=== PATIENT | male | born 1970 | race Caucasian/White ===

== ENCOUNTER 2018-03-26 19:32 | Observation (INO) ==
--- NOTE | 2018-03-26 19:39 | Emergency Department Note ---
Disposition Clinical Impression: Chest pain Qualifiers: Chest pain type: unspecified Qualified Code(s): R07.9 - Chest pain, unspecified Disposition: Admitted As Inpatient Condition: Good Chest Pain HPI - General Chief Complaint: ED Chest Pain Stated Complaint: Chest Pain Time Seen by Provider: 03/26/18 19:38 Vital Signs Reviewed: Yes Nursing Notes Reviewed: Yes - History of Present Illness HPI Narrative: 47-year-old male presents emergency department with concern for chest pain. Patient states he has had this for the last 3 days. He says started after taking lisinopril. Patient also reports that he has been having cough. He is also having some sputum production but he denies any fever. - Related Data Home Medications Medication Instructions Recorded Confirmed Alprazolam [Xanax] 2 mg PO TID 03/26/18 03/26/18 Allergies Allergy/AdvReac Type Severity Reaction Status Date / Time No Known Allergies Allergy Verified 03/26/18 20:14 All systems ED: reviewed and negative except as stated. Review of Systems: As Per HPI Constitutional: Denies: fever Cardiovascular: Reports: chest pain. Denies: edema Respiratory: Reports: cough, dyspnea, wheezes, sputum production Gastrointestinal: Denies: abdominal pain, nausea, vomiting Musculoskeletal: Denies: back pain, neck pain Hematological/Lymphatic: Denies: easy bleeding Physical Exam - Head Head exam: normocephalic - Eye Eye exam: Present: EOMI - ENT ENT exam: normal oropharynx - Neck Neck exam: Present: trachea midline - Chest Chest inspection: Present: symmetric chest wall rise, tenderness (upon palpation ) - Respiratory Respiratory exam: Present: wheezes. Absent: respiratory distress - Cardiovascular Cardiovascular exam: Present: regular rate, normal rhythm, normal heart sounds - Abdominal Exam Abdominal exam: Present: soft, Non-Tender. Absent: distention, guarding, rebound, rigidity Course Vital Signs Temperature 97.9 F 03/26/18 19:37 Pulse Rate 69 03/26/18 19:37 Respiratory Rate 14 03/26/18 19:37 Blood Pressure 132/84 03/26/18 19:37 O2 Sat by Pulse Oximetry 98 03/26/18 19:37 Temperature 97.9 F 03/26/18 19:37 Pulse Rate 54 03/26/18 22:27 Respiratory Rate 18 03/26/18 22:27 Blood Pressure 112/81 03/26/18 22:27 O2 Sat by Pulse Oximetry 95 03/26/18 22:27 Oxygen Delivery Oxygen Delivery Room Air Chest Pain - MDM Narrative Medical decision making narrative: 47-year-old male presents emergency department with concern for chest pain. At this time, initial EKG reveals new changes from previous EKG that are concerning for possible ischemia. No evidence of STEMI at this time. Patient given aspirin here in the emergency department. He will also be given a trial of nitroglycerin. Patient currently hemodynamic was stable. He does not appear to be in any significant distress at this time. He does have a heart score 5. Patient had resolution of chest pain after menstruation of nitroglycerin trial. Discussed admission with patient. He agreed to stay. Chest x-ray did not reveal any acute cart a pulmonary abnormality. Troponin was negative. Patient hemodynamically stable not in acute distress at time of admission. Chest X-Ray 03/26/18 19:55 IMPRESSION: No acute process. D/ / Kevin Jeter MD / Kevin Jeter MD Interpreting Provider: Kevin Jeter MD Vital Signs Temperature 97.9 F 03/26/18 19:37 Pulse Rate 69 03/26/18 19:37 Respiratory Rate 14 03/26/18 19:37 Blood Pressure 132/84 03/26/18 19:37 O2 Sat by Pulse Oximetry 98 03/26/18 19:37 Temperature 97.9 F 03/26/18 19:37 Pulse Rate 54 03/26/18 22:27 Respiratory Rate 18 03/26/18 22:27 Blood Pressure 112/81 03/26/18 22:27 O2 Sat by Pulse Oximetry 95 03/26/18 22:27 Oxygen Delivery Oxygen Delivery Room Air - Lab Data Result diagrams: 03/26/18 20:14 03/26/18 20:14 Lab Results 03/26/18 03/26/18 03/26/18 Range/Units 20:14 20:14 20:14 WBC 10.4 (4.3-11.1) K/mcL RBC 5.34 (4.19-5.50) M/mcL Hgb 15.7 (12.9-16.9) g/dL Hct 47.0 (37.5-50.1) % MCV 88.0 (83.0-100.0) fL MCH 29.4 (28.0-33.3) pg MCHC 33.4 (31.6-35.5) g/dL RDW 14.7 H (11.5-14.5) % Plt Count 240 (140-400) K/mcL MPV 10.7 (9.4-12.4) fL Immature Gran % 0.5 (0-4) % Seg Neutrophils % 67.6 % Lymphocytes % 23.1 % Monocytes % 7.5 % Eosinophils % 0.7 % Basophils % 0.6 % Neutrophils # 7.0 (1.6-8.9) K/mcL Lymphocytes # 2.4 (0.6-4.6) K/mcL Monocytes # 0.8 (0.0-1.3) K/mcL Eosinophils # 0.1 (0.0-0.6) K/mcL Basophils # 0.1 (0.0-0.2) K/mcL PT 11.7 (9.4-12.1) Seconds INR 1.0 APTT 29.1 (26.0-36.0) Seconds Sodium 139 (136-145) mEq/L Potassium 3.9 (3.5-5.1) mEq/L Chloride 105 (98-107) mEq/L Carbon Dioxide 29 (23-29) mEq/L BUN 18 (6-20) mg/dL Creatinine 0.80 (0.70-1.30) mg/dL Est GFR ( Amer) > 60 (> 60) Est GFR (Non-Af Amer) > 60 (> 60) BUN/Creatinine Ratio 23 (6-26) Glucose 96 (70-105) mg/dL Calculated Osmolality 290 (280-300) Calcium 9.5 (8.6-10.3) mg/dL Troponin I < 0.03 (< 0.04) ng/mL - EKG Data EKG attestation: Yes I reviewed and interpreted this EKG. EKG results narrative: 19:39 Heart rate 63, IN interval 141 ms, QRS duration 102 6, QT 383 ms, QTC 390 ms, right axis deviation. Q waves in lead 1 and aVL. There are also T-wave inversions in 1 and aVL as well. New from previous EKG obtained on February 22, 2015. EKG #2 No additional changes. EKG #3 No new ischemic changes. Heart Score - Score History: Moderately Suspicious EKG: Non Specific repolarisation Disturbance Age: 45-65 Risk Factors: Equal/Greater than 3 risk factor or history of atherosclerotic disease Troponin: Less than normal limit HEART Score Total: 5
[2018-03-26] MEDS ORDERED: Ipratropium/Albuterol Neb 3 ML IH ONE (19:56)
[2018-03-26] MEDS ORDERED: predniSONE 20 MG TABLET PO ONE (19:57)
[2018-03-26] MEDS ORDERED: Aspirin 325 MG TABLET PO ONE (20:09)
[2018-03-26] MEDS ORDERED: 0.9 % Sodium Chloride 1,000 ML IVC ONE (20:17)
[2018-03-26] MEDS: Nitroglycerin 0.4 MG TAB.SUBL SL PRN ×3 (20:28→20:40)
[2018-03-26 20:36] LABS: Basophils # 0.1 K/mcL (0.0-0.2); Basophils % 0.6 %; Eosinophils # 0.1 K/mcL (0.0-0.6); Eosinophils % 0.7 %; Hemoglobin 15.7 g/dL (12.9-16.9); Immature Granulocytes % 0.5 % (0-4); Lymphocytes # 2.4 K/mcL (0.6-4.6); Lymphocytes % 23.1 %; Mean Corpuscular HGB Conc 33.4 g/dL (31.6-35.5); Mean Corpuscular Hemoglobin 29.4 pg (28.0-33.3); Mean Platelet Volume 10.7 fL (9.4-12.4); Monocytes # 0.8 K/mcL (0.0-1.3); Monocytes % 7.5 %; Platelet Count 240 K/mcL (140-400); Red Blood Count 5.34 M/mcL (4.19-5.50); Red Cell Distribution Width 14.7 % (11.5-14.5); Segmented Neutrophils % 67.6 %
[2018-03-26 20:48] LABS: BUN/Creatinine Ratio 23 (6-26); Blood Urea Nitrogen 18 mg/dL (6-20); Calcium 9.5 mg/dL (8.6-10.3); Carbon Dioxide 29 mEq/L (23-29); Chloride 105 mEq/L (98-107); Glucose 96 mg/dL (70-105); Osmolality,Calculated 290 (280-300); Potassium 3.9 mEq/L (3.5-5.1); Sodium 139 mEq/L (136-145); eGFR For Non-African Americans > 60 (> 60)
[2018-03-26 20:49] LABS: Troponin I < 0.03 ng/mL (< 0.04)
--- NOTE | 2018-03-26 21:04 | Emergency Department Note ---
Disposition Clinical Impression: Chest pain Qualifiers: Chest pain type: unspecified Qualified Code(s): R07.9 - Chest pain, unspecified Disposition: Admitted As Inpatient Condition: Good General Adult HPI - General Chief complaint: ED Chest Pain Stated complaint: Chest Pain Time Seen by Provider: 03/26/18 19:38 Source: patient, family Limitations: no limitations - History of Present Illness Pain Scale: 6 - Related Data Home Medications Medication Instructions Recorded Confirmed Alprazolam [Xanax] 2 mg PO TID 03/26/18 03/26/18 Allergies Allergy/AdvReac Type Severity Reaction Status Date / Time No Known Allergies Allergy Verified 03/26/18 20:14 Constitutional: Denies: fever Cardiovascular: Reports: chest pain. Denies: edema Respiratory: Reports: cough, dyspnea, wheezes, sputum production Gastrointestinal: Denies: abdominal pain, nausea, vomiting Musculoskeletal: Denies: back pain, neck pain Hematological/Lymphatic: Denies: easy bleeding Past Medical History - Past Medical History Medical history: Reports: hyperlipidemia, hypertension Psychiatric history: Reports: anxiety - Social History Smoking Status: Current every day smoker Smokeless Tobacco Status: No Alcohol use: Reports: none Drug use: Reports: none Physical Exam - General Limitations: no limitations General appearance: alert, in no apparent distress Course Vital Signs Temperature 97.9 F 03/26/18 19:37 Pulse Rate 69 03/26/18 19:37 Respiratory Rate 14 03/26/18 19:37 Blood Pressure 132/84 03/26/18 19:37 O2 Sat by Pulse Oximetry 98 03/26/18 19:37 Temperature 97.7 F 03/27/18 08:10 Pulse Rate 55 03/27/18 08:10 Respiratory Rate 16 03/27/18 08:10 Blood Pressure 102/65 03/27/18 08:10 O2 Sat by Pulse Oximetry 97 03/27/18 08:10 Oxygen Delivery Oxygen Delivery Room Air Medical Decision Making - Lab Data Result diagrams: 03/27/18 03:25 03/27/18 03:25 Lab Results 03/26/18 03/26/18 03/26/18 Range/Units 20:14 20:14 20:14 WBC 10.4 (4.3-11.1) K/mcL RBC 5.34 (4.19-5.50) M/mcL Hgb 15.7 (12.9-16.9) g/dL Hct 47.0 (37.5-50.1) % MCV 88.0 (83.0-100.0) fL MCH 29.4 (28.0-33.3) pg MCHC 33.4 (31.6-35.5) g/dL RDW 14.7 H (11.5-14.5) % Plt Count 240 (140-400) K/mcL MPV 10.7 (9.4-12.4) fL Immature Gran % 0.5 (0-4) % Seg Neutrophils % 67.6 % Lymphocytes % 23.1 % Monocytes % 7.5 % Eosinophils % 0.7 % Basophils % 0.6 % Neutrophils # 7.0 (1.6-8.9) K/mcL Lymphocytes # 2.4 (0.6-4.6) K/mcL Monocytes # 0.8 (0.0-1.3) K/mcL Eosinophils # 0.1 (0.0-0.6) K/mcL Basophils # 0.1 (0.0-0.2) K/mcL PT 11.7 (9.4-12.1) Seconds INR 1.0 APTT 29.1 (26.0-36.0) Seconds Sodium 139 (136-145) mEq/L Potassium 3.9 (3.5-5.1) mEq/L Chloride 105 (98-107) mEq/L Carbon Dioxide 29 (23-29) mEq/L BUN 18 (6-20) mg/dL Creatinine 0.80 (0.70-1.30) mg/dL Est GFR ( Amer) > 60 (> 60) Est GFR (Non-Af Amer) > 60 (> 60) BUN/Creatinine Ratio 23 (6-26) Glucose 96 (70-105) mg/dL Calculated Osmolality 290 (280-300) Calcium 9.5 (8.6-10.3) mg/dL Troponin I < 0.03 (< 0.04) ng/mL Attestation Statement - Attestation Attestation: I examined this patient and my medical decision-making was reviewed with the Resident Physician. I agree with the documented findings, disposition and treatment plan as described except to the extent set forth below. Moderately suspicious story with lower sternal chest heaviness, no radiation, no nausea or diaphoresis. Has had some shortness of breath but also has a cough , no fever. He has COPD, is coughing more than usual. Pain was intermittent for a day, mostly constant for the last 2 days. Cannot identify any alleviating or exacerbating factors. Has 3 risk factors. EKG shows Q waves and T-wave inversions in leads 1 and aVL that are new compared to thousand 15. There are also peaked T waves in the precordium that looked exactly the same as it did in 2015. Heart score is 5 with troponin pending. Repeat EKG is unchanged, repeating again at the time of dictation. Patient will require admission for further evaluation and management.
[2018-03-26] MEDS ORDERED: Nicotine 7 MG PATCH.TD24 TD STA (22:00)
[2018-03-26 22:22] LABS: Prothrombin Time 11.7 Seconds (9.4-12.1)
[2018-03-26 22:25] LABS: Activated Partial Thrombo Time 29.1 Seconds (26.0-36.0)
[2018-03-26] MEDS ORDERED: Naloxone 0.4 MG/ML INJ IVP PRN (22:56)
[2018-03-26] MEDS ORDERED: Nitroglycerin 0.4 MG TAB.SUBL SL PRN (23:39)
[2018-03-26] MEDS ORDERED: *HR* Heparin 5,000 UNIT/ML VIAL IVP PRN ×2 (23:42)
[2018-03-26] MEDS ORDERED: *HR* Heparin 5,000 UNIT/ML VIAL IVP ONE (23:42)
[2018-03-26] MEDS ORDERED: Heparin 25,000 UNIT/500 ML D5W 25,000 UNIT/500 ML BAG IVC SCH (23:45)
[2018-03-26] MEDS: 0.9 % Sodium Chloride 1,000 ML IVC SCH (23:46)
--- NOTE | 2018-03-26 23:48 | Internal Med History&Physical ---
Date of Encounter: 03/27/18 Time of Encounter: 23:46 Internal Medicine - H&P: HPI Chief complaint: CHest pain/Duspnea History of present illness: Mr. Tabares is a 47 year old male with past medical history of hypertension, anxiety, and unconfirmed COPD in the setting of a significant smoking history who presented to the ED at the request of his father for ongoing chest pain and difficulty breathing. Patient states that last Sunday night while helping his father work on his car he developed substernal nonradiating chest pain which she described as a squeezing sensation, 6 out of 10 in intensity associated with difficulty breathing. He states that he felt like he was gasping for air. Patient has a history of panic attacks but states that this was not similar to his panic attacks. Patient stated that he sat down to take a break which did alleviate his symptoms somewhat. Denies any nausea but does endorse some diaphoresis and palpitations. He does seem to endorse that his symptoms were aggravated with exertion and partially relieved with rest. Since then symptoms have not completely resolved however the patient brushed it off until his father pushed him to come into the ED today to have it checked. Patient also states that he was started on lisinopril by his doctor approximately 4 days ago and ever since then has been linking his current symptoms to the medication. Patient smokes about a pack a day and has been doing so for the past 30 years. Denies any alcohol or drug use. Reports a history of heart disease on his father's side. His father had stents placed in his heart and he believes at the age of 65. Past Med Surg Social Fam HX - Past Medical History Medical history: hyperlipidemia, hypertension Psychiatric history: anxiety - Social History Smoking Status: Current every day smoker Smokeless Tobacco Status: No Alcohol use: none Drug use: none Internal Medicine - H&P: Meds Alprazolam [Xanax] 2 mg PO TID 03/26/18 [History] 3 Allergy/AdvReac Type Severity Reaction Status Date / Time No Known Allergies Allergy Verified 03/26/18 20:14 All Systems PM: A 10-system review of systems was performed and is negative for pertinent findings except as documented above in the HPI. - Constitutional Constitutional: no chills, no fever(s), no night sweats - EENT Eyes: no change in vision, no discharge, no pain, no photophobia Ears: no ear discharge, no ear pain, no tinnitus Nose, mouth and throat: no dysphagia, no nasal discharge, no neck pain, no sore throat - Cardiovascular Cardiovascular ROS IM: no chest pain, no diaphoresis, no dyspnea, no lightheadedness, no palpitations, no syncope - Respiratory Respiratory: no cough, no dyspnea, no wheezing, no excessive phlegm production - Gastrointestinal Gastrointestinal: no abdominal pain, no diarrhea, no hematemesis, no hematochezia, no melena, no nausea, no vomiting - Musculoskeletal Musculoskeletal ROS IM: no numbness, no tingling - Integumentary Integumentary IM: no rash, no unusual bruising - Neurological Neurological ROS: no confusion, no convulsions, no focal weakness, no numbness, no tingling, no tremor(s) - Hematologic/Lymphatic Hematologic/Lymphatic: no easy bruising - Constitutional Vitals: Temp Pulse Resp BP Pulse Ox 98.1 F 56 16 113/75 98 03/26/18 23:35 03/26/18 23:35 03/26/18 23:35 03/26/18 23:35 03/26/18 23:35 Exam: General: Alert and oriented 3 lying in bed not in acute distress Skin:Normal color, no rash, no lesions. HEENT:EOM, pupils equal, round and reactive. Cardiovascular:Normal S1 & S2, no rubs, murmurs or gallops. No JVD. Pulse regular. Lungs:Normal breath sounds, no wheezes or crackles. Abdomen:Soft, non-tender, no rigidity. Extremities:No deformity, no edema or tenderness, no joint swelling or clubbing. Neurological:Normal cognition and motor skills. Pulses:Carotid and radial pulses normal +2. Rest of the physical exam is non contributory Internal Med - H&P Results - Labs CBC & Chem 7: 03/27/18 03:25 03/27/18 03:25 - Assessment and plan (1) Chest pain Current Visit: Yes Status: Acute Assessment and plan: 47-year-old male with chest pain with some typical features and shortness of breath. Patient has multiple risk factors including hypertension, significant smoking history and family history. Troponins initial initially negative however EKG changes were noted, specifically with inverted T waves in lead 1 and aVF when compared to EKG in 2015. Rule out acute coronary syndrome. We will start patient on aspirin, statin, beta hipolito. Sublingual nitroglycerin as needed. Start patient on heparin drip. Cardiology consultation the morning. (Order in but Call has not been placed). Patient may need stress test evaluate for ischemic heart disease. (2) Hypertension Current Visit: Yes Status: Acute Assessment and plan: Blood pressure stable. Will start patient on 25 mg of metoprolol every 6 hours. Qualifiers: Hypertension type: essential hypertension Qualified Code(s): I10 - Essential (primary) hypertension (3) Anxiety Current Visit: Yes Status: Acute Assessment and plan: Continue patient's home dose of Xanax. - Time Spent With Patient Total time spent is greater than 50% in coordination of care (as documented) at patient's floor/unit and/or counseling patient:
[2018-03-27] MEDS: ALPRAZolam 1 MG TABLET PO SCH ×3 (01:01→14:25)
[2018-03-27 03:42] LABS: Basophils # 0.1 K/mcL (0.0-0.2); Basophils % 0.6 %; Eosinophils # 0.2 K/mcL (0.0-0.6); Eosinophils % 1.5 %; Hematocrit 44.7 % (37.5-50.1); Hemoglobin 14.5 g/dL (12.9-16.9); Immature Granulocytes % 0.6 % (0-4); Lymphocytes # 3.9 K/mcL (0.6-4.6); Lymphocytes % 37.5 %; Mean Corpuscular HGB Conc 32.4 g/dL (31.6-35.5); Mean Corpuscular Hemoglobin 29.1 pg (28.0-33.3); Mean Corpuscular Volume 89.6 fL (83.0-100.0); Mean Platelet Volume 10.6 fL (9.4-12.4); Monocytes # 0.8 K/mcL (0.0-1.3); Monocytes % 7.3 %; Neutrophils # 5.5 K/mcL (1.6-8.9); Platelet Count 229 K/mcL (140-400); Red Blood Count 4.99 M/mcL (4.19-5.50); Red Cell Distribution Width 14.7 % (11.5-14.5); Segmented Neutrophils % 52.5 %
[2018-03-27 04:04] LABS: Alanine Aminotransferase 11 Units/L (7-52); Albumin 3.3 g/dL (3.5-5.7); Albumin/Globulin Ratio 1.9 (1.1-2.2); Alkaline Phosphatase 40 Units/L (34-104); Aspartate Amino Transferase 12 Units/L (13-39); BUN/Creatinine Ratio 24 (6-26); Bilirubin,Total 0.3 mg/dL (0.3-1.0); Blood Urea Nitrogen 15 mg/dL (6-20); Calcium 8.6 mg/dL (8.6-10.3); Carbon Dioxide 28 mEq/L (23-29); Chloride 107 mEq/L (98-107); Chol/HDL Ratio 3.6 (0-4.9); Cholesterol 153 mg/dL (< 200); Globulin 1.7 g/dL (2.4-3.5); Glucose 97 mg/dL (70-105); HDL Cholesterol 43 mg/dL (40-59); LDL Cholesterol,Calculated 96 mg/dL (0-99); Osmolality,Calculated 291 (280-300); Potassium 3.6 mEq/L (3.5-5.1); Sodium 140 mEq/L (136-145); Triglycerides 69 mg/dL (< 150); eGFR For Non-African Americans > 60 (> 60)
--- NOTE | 2018-03-27 08:59 | Cardiology Consult Note ---
Date of Encounter: 03/27/18 Time of Encounter: 08:54 Assessment and Plan (1) Chest pain Current Visit: Yes Status: Acute Presented with chest pain that started Saturday, midsternal without radiation, no alleviating or exacerbating factors. Currently CP free. Troponin negative x 3. EKG is abnormal, but similar to EKG in 2015--early repolarization. Current EKG limb leads are reversed. Will repeat EKG. Risk factors for CAD include HTN, tobacco abuse and family hx--father with PCI at 65. Recommend TTE to evaluate structure and function. Recommend nuclear stress test to further evaluate for ischemic cause. Will follow-up later today after stress test has resulted. Qualifiers: Chest pain type: unspecified Qualified Code(s): R07.9 - Chest pain, unspecified Discussion w patient/family: The assessment and plan as outlined above was discussed with the patient and/or family members who expressed understanding and agreement. All questions were answered. Thank you for involving us in the care of your patient. Please call with any questions. I will discuss all the above with Dr. Ordonez and make changes as necessary. History of Present Illness Consult date: 03/27/18 Consult reason: abnormal EKG, CP Chief complaint: chest pain History of present illness: Mr. Tabares is a 47 year old male with PMH of hypertension, anxiety, tobacco abuse who presented to the ED for chest pain and difficulty breathing. Patient states that Sunday night while helping his father work on his car he developed substernal nonradiating chest pain which she described as pressure associated with dyspnea. Hx of anxiety. Endorses diaphoresis and palpitations. He was started on lisinopril by his PCP 5 days ago and attributed symptoms to Lisinopril. He smokes 1PPD x 30 years. Denies any alcohol or drug use. Reports a history of heart disease in his father with PCI at age 65. Pt currently chest pain free. He denies exacerbating or alleviating factors. Troponins negative x 3. EKG abnormalities noted. Cardiology consulted for further recs. Past Med Surg Social Fam HX - Past Medical History Medical history: hyperlipidemia, hypertension Psychiatric history: anxiety - Social History Smoking Status: Current every day smoker Smokeless Tobacco Status: No Alcohol use: none Drug use: none - Family History Mother Living Status: Still Living Father Living Status: Still Living Hx Family Cardiac Disorders: Yes (Stents) Medications and Allergies Alprazolam [Xanax] 2 mg PO TID 03/26/18 [History] 3 Allergy/AdvReac Type Severity Reaction Status Date / Time No Known Allergies Allergy Verified 03/26/18 20:14 All Systems Review: The remainder of the systems were reviewed and are negative - Constitutional Constitutional: fatigue - Cardiovascular Cardiovascular: as per HPI, chest pain at rest, chest pain with exertion, diaphoresis, dyspnea at rest, dyspnea on exertion, palpitations - Respiratory Respiratory: dyspnea Physical Examination Vital Signs, Last 4 Hours Temp Pulse Resp BP Pulse Ox 03/27/18 08:10 97.7 F 55 16 102/65 97 Vital Signs Temp Pulse Resp BP Pulse Ox 03/27/18 08:10 97.7 F 55 16 102/65 97 03/27/18 03:57 98.2 F 63 16 111/73 98 03/26/18 23:35 98.1 F 56 16 113/75 98 03/26/18 22:27 54 18 112/81 95 03/26/18 20:42 139/74 03/26/18 20:38 57 18 111/71 99 03/26/18 20:35 62 18 107/72 99 03/26/18 20:33 61 18 111/81 98 03/26/18 20:31 56 18 112/80 97 03/26/18 19:37 97.9 F 69 14 132/84 98 Intake and Output 03/26/18 03/27/18 03/27/18 23:59 07:59 15:59 Intake Total 220 / 220 Output Total 0 / 0 Balance 0 / 0 220 / 220 Intake: IV Fluids 220 / 220 Heparin 25,000 UNIT/500 ML D5W 220 / 220 25,000 unit In 500 ml @ 14 UNIT /KG/HR 22.876 mls/hr IVC . [id number] [facility] Rx#:[id number] Output: Urine 0 / 0 Other: Weight 81.7 kg General: Conversant, No Apparent Distress HEENT: Atraumatic, Normocephaly, Mucus Membranes Moist Neck: No JVD, Normal carotid pulses Cardiac: Reg Rate and Rhythm, Normal S1 and S2, No Murmur Lungs: Normal Breath Sounds, No Wheeze, Rales, Rhonchi Neuro: Alert and responsive, No focal deficits noted Abdomen: Soft, Non-Tender Skin: No rashes noted on visualized skin Musculoskeletal: No Chest Wall Tenderness Extremities: No Clubbing, No Cyanosis, No Edema, Normal Pulses Results 03/27/18 03:25 03/27/18 03:25 Lab Results 03/27/18 03/27/18 03/27/18 03:25 03:25 03:25 WBC 10.4 Hgb 14.5 Hct 44.7 Plt Count 229 Sodium 140 Potassium 3.6 Chloride 107 Carbon Dioxide 28 BUN 15 Creatinine 0.62 L Glucose 97 Calcium 8.6 Total Bilirubin 0.3 AST 12 L ALT 11 Alkaline Phosphatase 40 Troponin I < 0.03 03/27/18 06:52 WBC Hgb Hct Plt Count Sodium Potassium Chloride Carbon Dioxide BUN Creatinine Glucose Calcium Total Bilirubin AST ALT Alkaline Phosphatase Troponin I < 0.03 Short CBC 03/27/18 03/26/18 Range/Units 03:25 20:14 WBC 10.4 10.4 (4.3-11.1) K/mcL Hgb 14.5 15.7 (12.9-16.9) g/dL Hct 44.7 47.0 (37.5-50.1) % Plt Count 229 240 (140-400) K/mcL Neutrophils # 5.5 7.0 (1.6-8.9) K/mcL BMP 03/27/18 03/26/18 Range/Units 03:25 20:14 Sodium 140 139 (136-145) mEq/L Potassium 3.6 3.9 (3.5-5.1) mEq/L Chloride 107 105 (98-107) mEq/L Carbon Dioxide 28 29 (23-29) mEq/L BUN 15 18 (6-20) mg/dL Creatinine 0.62 L 0.80 (0.70-1.30) mg/dL Glucose 97 96 (70-105) mg/dL Calcium 8.6 9.5 (8.6-10.3) mg/dL Cardiac Enzymes 03/27/18 03/27/18 03/26/18 Range/Units 06:52 03:25 20:14 Troponin I < 0.03 < 0.03 < 0.03 (< 0.04) ng/mL Liver Function 03/27/18 Range/Units 03:25 Total Bilirubin 0.3 (0.3-1.0) mg/dL AST 12 L (13-39) Units/L ALT 11 (7-52) Units/L Alkaline Phosphatase 40 (34-104) Units/L Albumin 3.3 L (3.5-5.7) g/dL Impressions Chest X-Ray 03/26/18 19:55 IMPRESSION: No acute process. D/ / Kevin Jeter MD / Kevin Jeter MD Interpreting Provider: Kevin Jeter MD Active Medications Alprazolam (Xanax) 2 mg PO TID YI Stop: 09/25/18 23:46 Last Admin: 03/27/18 08:46 Dose: 2 mg Aspirin (Aspirin) 81 mg PO DAILY YI Stop: 09/26/18 09:01 Last Admin: 03/27/18 08:46 Dose: 81 mg Atorvastatin Calcium (Lipitor) 40 mg PO HS YI Stop: 09/25/18 23:46 Last Admin: 03/27/18 00:58 Dose: 40 mg Heparin Sodium (Porcine) (Heparin) 5,700 unit 70 unit/kg (5700 unit) IVP Q6HR PRN PRN Reason: SEE COMMENTS Stop: 09/25/18 23:43 Heparin Sodium (Porcine) (Heparin) 2,900 unit 35 unit/kg (2900 unit) IVP Q6H PRN PRN Reason: SEE COMMENTS Stop: 09/25/18 23:43 Sodium Chloride (0.9 % Sodium Chloride) 1,000 mls @ 100 mls/hr IVC .Q10H YI Stop: 03/27/18 18:59 Last Admin: 03/26/18 23:46 Dose: 100 mls/hr Heparin Sodium/Dextrose (Heparin 25,000 Unit/500 Ml D5w) 25,000 unit in 500 mls @ 22.876 mls/hr IVC .[id number] YI; 14 UNIT/KG/HR PRN Reason: Protocol Stop: 09/25/18 23:46 Last Titration: 03/27/18 08:29 Dose: 0 unit/kg/hr, 0 mls/hr Metoprolol Tartrate (Lopressor) 25 mg PO Q6HR YI Stop: 09/26/18 00:01 Last Admin: 03/27/18 05:18 Dose: Not Given Naloxone HCl (Narcan) 0.4 mg IVP Q2MIN PRN PRN Reason: SEE COMMENTS Stop: 09/25/18 22:57 Nitroglycerin (Nitroglycerin) 0.4 mg SL Q5MIN PRN PRN Reason: Chest Pain Stop: 09/25/18 20:11 Last Admin: 03/26/18 20:40 Dose: 0.4 mg - EKG Interpretation EKG results cardiology: personally reviewed (early repolarization, limb leads reversed.), other (12 hr tele AVG HR 54, SR, no significant pauses or arrhythmias) Consult Discharge Plan - Plan Referrals: NONE,PCP [Primary Care Provider] -
[2018-03-27] MEDS ORDERED: Aspirin 81 MG TAB.CHEW PO SCH (09:00)
[2018-03-27] MEDS: 0.9 % Sodium Chloride 1,000 ML IVC SCH (09:23)
--- NOTE | 2018-03-27 11:40 | Internal Med Progress Note ---
Hospitalist Progress Note - Encounter Date of Encounter: 03/27/18 Time of Encounter: 11:38 - Subjective Interval History: Pt currently has no chest pain. - Exam Vitals: Temp Pulse Resp BP Pulse Ox 97.7 F 55 16 102/65 97 03/27/18 08:10 03/27/18 08:10 03/27/18 08:10 03/27/18 08:10 03/27/18 08:10 Exam: PHYSICAL EXAMINATION: GENERAL APPEARANCE: The patient is alert, oriented and in no acute distress. HEENT: Head is normocephalic. The sinuses are nontender. Pupils are equal and reactive. The nares are patent. Oropharynx clear without lesions. NECK: Supple without lymphadenopathy. HEART: Regular rate and rhythm. LUNGS: No crackles or wheezes are heard. ABDOMEN: Soft, nontender, nondistended with good bowel sounds heard. Inguinal area is normal. EXTREMITIES: Without cyanosis, clubbing or edema. NEUROLOGICAL: Gross nonfocal. SKIN: Warm and dry without any rash. - Assessment and Plan (1) Chest pain Current Visit: Yes Status: Acute Assessment and Plan: 47-year-old male with chest pain with some typical features and shortness of breath. Patient has multiple risk factors including hypertension, significant smoking history and family history. Troponins initial initially negative however EKG changes were noted, specifically with inverted T waves in lead 1 and aVF when compared to EKG in 2015. cards consulted and stress test and echo ordered. (2) Hypertension Current Visit: Yes Status: Acute Assessment and Plan: Blood pressure stable. Will start patient on 25 mg of metoprolol every 6 hours. (3) Anxiety Current Visit: Yes Status: Acute Assessment and Plan: Continue patient's home dose of Xanax. DVT Prophylaxis: SCDs - Time Spent with Patient Total time spent is greater than 50% in coordination of care (as documented) at patient's floor/unit and/or counseling patient: Greater than 35 minutes Plan of Care Discussed with: patient Internal Medicine: Result - Labs CBC & Chem 7: 03/27/18 03:25 03/27/18 03:25 Labs: Short CBC 03/27/18 Range/Units 03:25 WBC 10.4 (4.3-11.1) K/mcL Hgb 14.5 (12.9-16.9) g/dL Hct 44.7 (37.5-50.1) % Plt Count 229 (140-400) K/mcL Neutrophils # 5.5 (1.6-8.9) K/mcL BMP 03/27/18 03:25 Sodium 140 Potassium 3.6 Chloride 107 Carbon Dioxide 28 BUN 15 Creatinine 0.62 L Glucose 97 Calcium 8.6 Cardiac Enzymes 03/27/18 03/27/18 Range/Units 03:25 06:52 Troponin I < 0.03 < 0.03 (< 0.04) ng/mL Liver Function 03/27/18 Range/Units 03:25 Total Bilirubin 0.3 (0.3-1.0) mg/dL AST 12 L (13-39) Units/L ALT 11 (7-52) Units/L Alkaline Phosphatase 40 (34-104) Units/L Albumin 3.3 L (3.5-5.7) g/dL - ABG Interpretation ABG results: PT/INR, D-dimer PT 11.7 Seconds (9.4-12.1) 03/26/18 20:14 Consult Discharge Plan - Plan Referrals: NONE,PCP [Primary Care Provider] - (2) Hypertension Qualifiers: Hypertension type: essential hypertension Qualified Code(s): I10 - Essential (primary) hypertension
[2018-03-27] MEDS ORDERED: Regadenoson 0.4 MG/5 ML SYRINGE IVP ONE (11:54)
[2018-03-27 13:06] VITALS: BP 102/66
--- NOTE | 2018-03-27 15:07 | Event Note ---
Date of Encounter: 03/27/18 Time of Encounter: 15:06 - Cardiology Event Note Nuclear stress test perfusion imaging negative for ischemia or infarct, gated EF 63%. TTE pending. If no significant findings on echo, cardiology will sign off. Reconsult PRN.
--- NOTE | 2018-03-27 16:42 | Electrocardiograph Report ---
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
--- NOTE | 2018-03-27 16:50 | Electrocardiograph Report ---
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
--- NOTE | 2018-03-27 17:05 | Discharge Summary ---
- NOTES TO OUTPATIENT PROVIDER Notes to Outpatient Provider: f/u with PCP within a week. Orders not resulted at time of discharge: Pending orders 03/27/18 09:09 NM manuel perf SPECT multi [NM] Routine EV echocardiogram Routine Date of Encounter: 03/27/18 Time of Encounter: 17:02 - Discharge Diagnosis (1) Chest pain Priority: Primary Status: Acute Qualifiers: Chest pain type: unspecified Qualified Code(s): R07.9 - Chest pain, unspecified (2) Hypertension Priority: Secondary Status: Chronic Qualifiers: Hypertension type: essential hypertension Qualified Code(s): I10 - Essential (primary) hypertension (3) Anxiety Priority: Secondary Status: Chronic Hospital course: Mr. Tabares is a 47 year old male with past medical history of hypertension, anxiety, and unconfirmed COPD in the setting of a significant smoking history who presented to the ED at the request of his father for ongoing chest pain and difficulty breathing. Patient states that last Sunday night while helping his father work on his car he developed substernal nonradiating chest pain which she described as a squeezing sensation, 6 out of 10 in intensity associated with difficulty breathing. He states that he felt like he was gasping for air. Patient has a history of panic attacks but states that this was not similar to his panic attacks. Patient stated that he sat down to take a break which did alleviate his symptoms somewhat. Denies any nausea but does endorse some diaphoresis and palpitations. He does seem to endorse that his symptoms were aggravated with exertion and partially relieved with rest. Since then symptoms have not completely resolved however the patient brushed it off until his father pushed him to come into the ED today to have it checked. Patient also states that he was started on lisinopril by his doctor approximately 4 days ago and ever since then has been linking his current symptoms to the medication. Patient smokes about a pack a day and has been doing so for the past 30 years. Denies any alcohol or drug use. Reports a history of heart disease on his father's side. His father had stents placed in his heart and he believes at the age of 65. Cardiac workup including stress test and echocardiogram both are reassuring. Patient will be discharged home today, he was instructed to follow-up with PCP within a week. Discharge discussed with: patient Time spent discussing smoking cessation with patient: more than 10 minutes - Time Spent with Patient Total time spent providing and/or coordinating discharge services: Greater than 30 minutes - Discharge Medications Prescriptions: Atorvastatin [Lipitor] 40 mg PO HS #30 tablet Home Medications: Alprazolam [Xanax] 2 mg PO TID 03/26/18 [History] Atorvastatin [Lipitor] 40 mg PO HS #30 tablet 03/27/18 [Rx] Allergies/Adverse Reactions: 3 Allergy/AdvReac Type Severity Reaction Status Date / Time No Known Allergies Allergy Verified 03/26/18 20:14 Date of admission: 03/26/18 22:12 Primary care physician: PCP NONE Consults: 03/26/18 23:44 Consult to Cardiology [CONS] Routine Comment: Consulting Provider: Cardiology Hein Reason for Consult: R/O ACS Call Completed: No Anticipated date of discharge: 03/27/18 - Constitutional Vitals: Temp Pulse Resp BP Pulse Ox 97.7 F 69 18 102/66 99 03/27/18 13:05 03/27/18 13:05 03/27/18 13:05 03/27/18 13:05 03/27/18 13:05 General appearance: Present: cooperative, A&O X 3, answers questions appropriately Exam: PHYSICAL EXAMINATION: GENERAL APPEARANCE: The patient is alert, oriented and in no acute distress. HEENT: Head is normocephalic. The sinuses are nontender. Pupils are equal and reactive. The nares are patent. Oropharynx clear without lesions. NECK: Supple without lymphadenopathy. HEART: Regular rate and rhythm. LUNGS: No crackles or wheezes are heard. ABDOMEN: Soft, nontender, nondistended with good bowel sounds heard. Inguinal area is normal. EXTREMITIES: Without cyanosis, clubbing or edema. NEUROLOGICAL: Gross nonfocal. SKIN: Warm and dry without any rash. - Patient Status Disposition: Home, Self-Care Condition: Good Functional capacity at discharge: independent ambulation Overall status at discharge: patient is back to baseline - Discharge Instructions Follow Up With: NONE,PCP [Primary Care Provider] - - Diet and Activity Activity: increase activity as tolerated Diet: low fat, low cholesterol, low salt diet
[2018-03-27] MEDS ORDERED: *HR* Heparin 5,000 UNIT/ML VIAL SQ SCH (18:00)
== END 2018-03-27 17:32 | disposition home or self-care (01) ==
LOC: EMEROOARM 19:32 → 3BNU 19:32
PROVIDERS: ADMIT Pediatrics; ATTEND Pediatrics